=== PATIENT | male | born 1950 | race Caucasian/White ===

== ENCOUNTER 2021-12-24 12:00 | Observation (INO) | payer MEDICARE ==
[~2021-12-24] VITALS: Ht 175.3 cm; Wt 103.3 kg
[2021-12-24 10:18] LABS: BASOPHILS % (AUTO) 0.6 % (0.0-5.0); EOSINOPHILS % (AUTO) 0.9 % (0.0-8.0); HEMATOCRIT 49.1 % (42-54); LYMPHOCYTES % (AUTO) 38.5 % (21.0-51.0); MEAN CORPUSCULAR HEMOGLOBIN 28.5 pg (27.0-33.0); MEAN CORPUSCULAR HGB CONC 32.8 g/dL (32.0-36.0); MEAN CORPUSCULAR VOLUME 87.1 fL (79-99); NEUTROPHILS % (AUTO) 51.7 % (40.0-77.0); PLATELET COUNT (AUTO) 247 K/uL (130-400); RED BLOOD CELL COUNT(AUTO) 5.64 MIL/uL (4.50-6.20); RED CELL DISTRIBUTION WIDTH 12.9 % (11.0-15.5); WHITE BLOOD COUNT (AUTO) 12.1 K/uL (4.8-10.8)
[2021-12-24 10:26] LABS: INR 0.93 (0.85-1.15)
[2021-12-24 10:38] LABS: CARBON DIOXIDE 30 mmol/L (21-32); CHLORIDE 100 mmol/L (101-111); CREATININE 0.9 mg/dL (0.5-1.5); GLOMERULAR FILTR. RATE CALC 89 mL/min (>60); GLUCOSE,RANDOM 113 mg/dL (70-105); POTASSIUM 4.1 mmol/L (3.5-5.1); SODIUM SERUM 139 mmol/L (136-145); UREA NITROGEN, BLOOD 17 mg/dL (7-18)
[2021-12-24 10:56] LABS: CRP QUANTITATIVE < 2.00 mg/L (0.00-9.0)
[2021-12-24 10:58] LABS: APPEARANCE,URINE CLEAR (CLEAR); BILIRUBIN,URINE NEGATIVE (NEGATIVE); COLOR,URINE LIGHT-YELLOW (YELLOW); GLUCOSE, URINE (UA) NEGATIVE (NEGATIVE); KETONES,URINE NEGATIVE (NEGATIVE); LEUKOCYTE ESTERASE ,URINE NEGATIVE Leu/uL (NEGATIVE); NITRATE,URINE NEGATIVE (NEGATIVE); OCCULT BLOOD,URINE NEGATIVE (NEGATIVE); PH,URINE 5.5 (5.0-8.0); PROTEIN,URINE NEGATIVE (NEGATIVE); UROBILINOGEN,URINE 0.2 mg/dL (0.2-1.0)
[2021-12-24 11:42] VITALS: BP 161/82
[2021-12-24 12:10] LABS: INR 0.94 (0.85-1.15); PROTHROMBIN TIME 10.3 SEC (9.6-11.6)
[2021-12-24 12:12] LABS: PARTIAL THROMBOPLASTIN TIME 23.8 SEC (26.3-35.5)
[2021-12-27] VITALS (32 sets, daily range): BP systolic 127–162; BP diastolic 59–119
[2021-12-27] MEDS ORDERED: ROPIVACAINE 0.5% 5MG/ML 30ML IJ ONE ×3 (04:33→04:54)
[2021-12-27] MEDS ORDERED: KETOROLAC 15MG/ML VIAL (15MG/ML) ONE (04:33)
[2021-12-27] MEDS ORDERED: TRANEXAMIC ACID 1000MG/10ML ONE ×2 (04:37→06:22)
[2021-12-27] MEDS ORDERED: KETOROLAC 30MG VIAL (30MG/ML) ONE (04:37)
[2021-12-27] MEDS: CEFAZOLIN SODIUM 1 GM VIAL IVPB SCH ×2 (06:00→07:15)
[2021-12-27] MEDS ORDERED: LACTATED RINGERS 1000ML 1,000 ML IV ONE (06:19)
[2021-12-27] MEDS ORDERED: GLYCOPYRROLATE 1 MG/5 ML SYRINGE ONE (06:49)
[2021-12-27] MEDS ORDERED: PROPOFOL 10 MG/ML 20ML VIAL IV ONE ×2 (06:49→07:31)
[2021-12-27] MEDS ORDERED: LIDOCAINE PF 100MG/5ML (2%) SYRINGE 5ML ONE (06:49)
[2021-12-27] MEDS ORDERED: ONDANSETRON 4MG INJ ONE (06:49)
[2021-12-27] MEDS ORDERED: MIDAZOLAM HCL 1 MG/ML 2ML VIAL ONE (06:50)
[2021-12-27] MEDS ORDERED: NEOSTIGMINE 5MG/5ML SYR IV ONE (06:50)
[2021-12-27] MEDS ORDERED: FENTANYL CITRATE PF 50 MCG/1 ML 2ML VIAL ONE ×2 (06:50→08:24)
[2021-12-27] MEDS ORDERED: ROCURONIUM 10MG/1ML SYR 10 MG/ML ML ONE ×2 (06:50→08:22)
[2021-12-27] MEDS ORDERED: PHENYLEPHRINE HCL 10 MG/ML 1ML VIAL IV ONE (06:53)
[2021-12-27] MEDS ORDERED: MEPERIDINE-PF 25 MG/ML SYG ONE ×3 (09:00→10:16)
[2021-12-27] MEDS ORDERED: KCL 20 MEQ ERTAB PO PRN (09:30)
[2021-12-27] MEDS ORDERED: POTASSIUM CHLORIDE 10% ELIXIR 20 MEQ/15 ML UDCUP PO PRN (09:30)
[2021-12-27] MEDS ORDERED: POTASSIUM CHLORIDE 20MEQ/100ML 100 ML IV PRN (09:30)
[2021-12-27] MEDS ORDERED: LIDOCAINE HCL-MPF 1% 2ML VIAL IV PRN (09:30)
[2021-12-27] MEDS ORDERED: CALCIUM CARB 500MG PO PRN (09:30)
[2021-12-27] MEDS ORDERED: FERROUS FUMARATE 324 MG TABLET PO PRN (09:30)
[2021-12-27] MEDS ORDERED: ONDANSETRON 4MG INJ IVP PRN (09:30)
[2021-12-27] MEDS: GABAPENTIN 100 MG CAPSULE PO SCH ×2 (13:15→19:54)
[2021-12-27] MEDS: 0.9%NACL 1000ML 1,000 ML IV SCH ×2 (13:27→19:30)
[2021-12-27] MEDS: CEFAZOLIN SODIUM 1 GM VIAL IVP SCH ×2 (15:41→20:02)
[2021-12-27] MEDS: HYDROCODONE/ACETAMINOPHEN 5/325 MG TAB PO PRN ×2 (15:43→22:01)
[2021-12-28] MEDS: CYCLOBENZAPRINE HCL 10 MG TABLET PO PRN ×2 (03:13→13:25)
[2021-12-28 03:16] VITALS: BP 137/75
[2021-12-28] MEDS ORDERED: BENZOCAINE/MENTH/CETYLPYRD CL 1 EACH LOZENGE MM PRN (03:30)
[2021-12-28 04:34] LABS: HEMATOCRIT 42.2 % (42-54); MEAN CORPUSCULAR HEMOGLOBIN 28.9 pg (27.0-33.0); MEAN CORPUSCULAR HGB CONC 33.2 g/dL (32.0-36.0); MEAN CORPUSCULAR VOLUME 87.2 fL (79-99); RED BLOOD CELL COUNT(AUTO) 4.84 MIL/uL (4.50-6.20); RED CELL DISTRIBUTION WIDTH 12.7 % (11.0-15.5); WHITE BLOOD COUNT (AUTO) 16.5 K/uL (4.8-10.8)
[2021-12-28 04:41] LABS: CREATININE 1.2 mg/dL (0.5-1.5); POTASSIUM 4.7 mmol/L (3.5-5.1)
[2021-12-28] MEDS: 0.9%NACL 1000ML 1,000 ML IV SCH (05:11)
[2021-12-28] MEDS: HYDROCODONE/ACETAMINOPHEN 5/325 MG TAB PO PRN ×2 (07:41→16:56)
[2021-12-28 08:20] VITALS: BP 134/84
[2021-12-28] MEDS: GABAPENTIN 100 MG CAPSULE PO SCH ×2 (08:48→13:23)
[2021-12-28] MEDS ORDERED: ASPIRIN 325MG TAB PO SCH (09:00)
[2021-12-28] MEDS ORDERED: POLYETHYLENE GLYCOL 3350 17 GM POWD.PACK PO SCH (09:00)
[2021-12-28 11:14] VITALS: BP 147/68
[2021-12-28 16:36] VITALS: BP 149/66
[2021-12-28] MEDS ORDERED: GABA100C PO (16:45)
[2021-12-28] MEDS ORDERED: CYCL-309 PO (16:45)
[2021-12-28] MEDS ORDERED: DOCU-116 PO (16:45)
[2021-12-28] MEDS ORDERED: ASPI-1026 PO (16:45)
[2021-12-28] MEDS ORDERED: HYDR-4060 PO (16:45)
[2021-12-30] MEDS ORDERED: BISACODYL 10 MG SUPP.RECT RC PRN (09:30)
== END 2021-12-28 18:10 | disposition home health service (06) ==
LOC: DAHIP 12-27 05:56 → 4DH 12-27 11:28 → EDSTATUS 12-27 12:00
PROVIDERS: ADMIT Student in an Organized Health Care Education/Training Program; ATTEND Student in an Organized Health Care Education/Training Program
DX: M17.11 Unilateral primary osteoarthritis, right knee (principal); Z20.822 Contact with and (suspected) exposure to COVID-19; R33.9 Retention of urine, unspecified; E78.00 Pure hypercholesterolemia, unspecified; Z79.899 Other long term (current) drug therapy; Z98.890 Other specified postprocedural states
CPT/HCPCS: 82040; 80048 ×2; 85025; 85610; 85730; 87088; 84134; 86140; 87426; 81003; 36415 ×2; 87641; 97039 ×4; 27447; 96374; 96376; 76942; 64447; 73560; 97161; 85027; 97116 ×2; 97530; G0378 ×32; G0379; A4663; A4215 ×2; A4600; J7120; J3010 ×2; J0690 ×3; J3490 ×3; J2710; J2001; J2704 ×2; J2405; J1885; J2175 ×3; J2795 ×3; J2370; C1713; G0168; C1776 ×2; A4930; A4649 ×2; A6255; A5120; A4223; A4222; A4221; J2250

== ENCOUNTER 2022-09-26 08:16 | Observation (INO) | payer MEDICARE ==
[2022-09-23 13:19] LABS: BASOPHILS # (AUTO) 0.06 K/uL (0.00-0.20); BASOPHILS % (AUTO) 0.6 % (0.0-5.0); HEMATOCRIT 48.7 % (42-54); IMMATURE GRANULOCYTE ABSOLUTE 0.03 K/uL (0-1); LYMPHOCYTES # (AUTO) 4.3 K/uL (1.0-4.8); MEAN CORPUSCULAR HEMOGLOBIN 28.4 pg (27.0-33.0); MEAN CORPUSCULAR HGB CONC 32.2 g/dL (32.0-36.0); MEAN CORPUSCULAR VOLUME 88.2 fL (79-99); MONOCYTES % (AUTO) 9.5 % (3.0-13.0); NEUTROPHILS % (AUTO) 47.6 % (40.0-77.0); PLATELET COUNT (AUTO) 240 K/uL (130-400); RED BLOOD CELL COUNT(AUTO) 5.52 MIL/uL (4.50-6.20); RED CELL DISTRIBUTION WIDTH 13.2 % (11.0-15.5); WHITE BLOOD COUNT (AUTO) 10.5 K/uL (4.8-10.8)
[2022-09-23 13:20] LABS: APPEARANCE,URINE CLEAR (CLEAR); BILIRUBIN,URINE NEGATIVE (NEGATIVE); COLOR,URINE LIGHT-YELLOW (YELLOW); GLUCOSE, URINE (UA) NEGATIVE (NEGATIVE); KETONES,URINE NEGATIVE (NEGATIVE); LEUKOCYTE ESTERASE ,URINE NEGATIVE Leu/uL (NEGATIVE); NITRATE,URINE NEGATIVE (NEGATIVE); OCCULT BLOOD,URINE NEGATIVE (NEGATIVE); PH,URINE 6.5 (5.0-8.0); PROTEIN,URINE NEGATIVE (NEGATIVE); UROBILINOGEN,URINE 0.2 mg/dL (0.2-1.0)
[2022-09-23 13:21] LABS: ADD UA MICROSCOPIC NO
[2022-09-23 13:33] LABS: INR 0.93 (0.85-1.15); PROTHROMBIN TIME 10.2 SEC (9.6-11.6)
[2022-09-23 13:34] LABS: CARBON DIOXIDE 29 mmol/L (21-32); CHLORIDE 103 mmol/L (101-111); CREATININE 0.9 mg/dL (0.5-1.5); GLOMERULAR FILTR. RATE CALC 91 mL/min (>90); GLUCOSE,RANDOM 109 mg/dL (70-105); PARTIAL THROMBOPLASTIN TIME 24.5 SEC (26.3-35.5); POTASSIUM 4.6 mmol/L (3.5-5.1); SODIUM SERUM 141 mmol/L (136-145); UREA NITROGEN, BLOOD 11 mg/dL (7-18)
[2022-09-23 13:35] LABS: CRP QUANTITATIVE < 0.29 mg/L (0.00-9.0)
[2022-09-23 14:05] VITALS: BP 173/81; PULSE 73; RESP 20
[~2022-09-26] VITALS: Ht 175.3 cm; Wt 106.0 kg
[2022-09-26] VITALS (25 sets, daily range): BP systolic 134–169; BP diastolic 74–96; PULSE 66–106; RESP 15–20; O2SAT 95–97
[~2022-09-26 08:16] MED LIST: LISI10TA24 PO
[2022-09-26] MEDS ORDERED: LACTATED RINGERS 1000ML 1,000 ML IV ONE (08:52)
[2022-09-26] MEDS ORDERED: CEFAZOLIN SODIUM 2 GM VIAL ONE (08:52)
[2022-09-26] MEDS ORDERED: SUCCINYLCHOLINE CHLORIDE 20 MG/ML 10 ML VIAL ONE (08:56)
[2022-09-26] MEDS ORDERED: LIDOCAINE PF 100MG/5ML (2%) SYRINGE 5ML ONE (08:56)
[2022-09-26] MEDS ORDERED: NEOSTIGMINE 5MG/5ML SYR IV ONE (08:57)
[2022-09-26] MEDS ORDERED: DEXAMETHASONE SOD PHOSPHATE 10MG/ML 1ML VIAL ONE (08:57)
[2022-09-26] MEDS ORDERED: PROPOFOL 10 MG/ML 20ML VIAL IV ONE (08:57)
[2022-09-26] MEDS ORDERED: ONDANSETRON 4MG INJ ONE (08:57)
[2022-09-26] MEDS ORDERED: GLYCOPYRROLATE 1 MG/5 ML SYRINGE ONE (08:57)
[2022-09-26] MEDS ORDERED: ROCURONIUM 10MG/1ML SYR 10 MG/ML ML ONE ×2 (08:57→12:05)
[2022-09-26] MEDS ORDERED: MIDAZOLAM HCL 1 MG/ML 2ML VIAL ONE (08:57)
[2022-09-26] MEDS ORDERED: FENTANYL CITRATE PF 50 MCG/1 ML 2ML VIAL ONE (08:58)
[2022-09-26] MEDS ORDERED: LIDOCAINE HCL-MPF 2% 10ML AMP IJ ONE (09:05)
[2022-09-26] MEDS ORDERED: ROPIVACAINE 0.5% 5MG/ML 30ML IJ ONE ×2 (09:06→09:11)
[2022-09-26] MEDS ORDERED: TRANEXAMIC ACID 1000MG/10ML ONE (09:09)
[2022-09-26] MEDS ORDERED: KETOROLAC 30MG VIAL (30MG/ML) ONE (09:11)
[2022-09-26] MEDS ORDERED: MORPHINE PF 100MG/10ML AMP IV ONE (12:21)
[2022-09-26] MEDS ORDERED: POTASSIUM CHLORIDE 20MEQ/100ML 100 ML IV PRN (14:00)
[2022-09-26] MEDS ORDERED: HYDROCODONE/ACETAMINOPHEN 5/325 MG TAB PO PRN ×2 (14:00→14:30)
[2022-09-26] MEDS ORDERED: POTASSIUM CHLORIDE 10% ELIXIR 20 MEQ/15 ML UDCUP PO PRN (14:00)
[2022-09-26] MEDS ORDERED: ONDANSETRON 4MG INJ IVP PRN (14:00)
[2022-09-26] MEDS ORDERED: CALCIUM CARB 500MG PO PRN (14:00)
[2022-09-26] MEDS ORDERED: CYCLOBENZAPRINE HCL 10 MG TABLET PO PRN (14:00)
[2022-09-26] MEDS ORDERED: KCL 20 MEQ ERTAB PO PRN (14:00)
[2022-09-26] MEDS ORDERED: FERROUS FUMARATE 324 MG TABLET PO PRN (14:00)
[2022-09-26] MEDS ORDERED: TRAMADOL HCL 50 MG TABLET PO PRN (14:00)
[2022-09-26] MEDS: KETOROLAC 15MG/ML VIAL (15MG/ML) IV SCH ×2 (14:18→21:04)
[2022-09-26] MEDS: GABAPENTIN 100 MG CAPSULE PO SCH ×2 (15:23→21:03)
[2022-09-26] MEDS: 0.9%NACL 1000ML 1,000 ML IV SCH (15:23)
[2022-09-26] MEDS: HYDROCODONE/ACETAMINOPHEN 5/325 MG TAB PO PRN (15:59)
[2022-09-26] MEDS: CEFAZOLIN SODIUM 2 GM VIAL IVPB SCH (18:28)
[2022-09-26] MEDS: DOCUSATE SODIUM 100 MG CAP PO SCH (21:03)
[2022-09-27] VITALS: BP 151/86; PULSE 109; RESP 20
[2022-09-27] MEDS: HYDROCODONE/ACETAMINOPHEN 5/325 MG TAB PO PRN ×2 (00:08→11:31)
[2022-09-27] MEDS: CEFAZOLIN SODIUM 2 GM VIAL IVPB SCH (03:05)
[2022-09-27 04:00] VITALS: BP 126/73; PULSE 109; RESP 18
[2022-09-27 05:43] LABS: HEMATOCRIT 41.3 % (42-54); MEAN CORPUSCULAR HEMOGLOBIN 29.2 pg (27.0-33.0); MEAN CORPUSCULAR HGB CONC 33.2 g/dL (32.0-36.0); MEAN CORPUSCULAR VOLUME 88.1 fL (79-99); RED BLOOD CELL COUNT(AUTO) 4.69 MIL/uL (4.50-6.20); RED CELL DISTRIBUTION WIDTH 13.1 % (11.0-15.5); WHITE BLOOD COUNT (AUTO) 15.1 K/uL (4.8-10.8)
[2022-09-27] MEDS: KETOROLAC 15MG/ML VIAL (15MG/ML) IV SCH (05:44)
[2022-09-27 06:04] LABS: POTASSIUM 3.8 mmol/L (3.5-5.1)
[2022-09-27 07:30] VITALS: O2SAT 95
[2022-09-27 08:00] VITALS: BP 112/73; PULSE 95; RESP 16
[2022-09-27] MEDS ORDERED: LISINOPRIL 10 MG TABLET PO SCH (09:00)
[2022-09-27] MEDS ORDERED: ASPIRIN 325MG TAB PO SCH (09:00)
[2022-09-27] MEDS ORDERED: POLYETHYLENE GLYCOL 3350 17 GM POWD.PACK PO SCH (09:00)
[2022-09-27] MEDS: 0.9%NACL 1000ML 1,000 ML IV SCH ×2 (10:00)
[2022-09-27] MEDS: GABAPENTIN 100 MG CAPSULE PO SCH ×2 (10:14→13:53)
[2022-09-27] MEDS: DOCUSATE SODIUM 100 MG CAP PO SCH (10:14)
[2022-09-27 12:00] VITALS: BP 135/71; PULSE 106; RESP 16
[2022-09-27] MEDS ORDERED: KETOROLAC 15MG/ML VIAL (15MG/ML) IV PRN (14:00)
[2022-09-27 16:00] VITALS: BP 128/72; PULSE 98; RESP 16
[2022-09-29] MEDS ORDERED: BISACODYL 10 MG SUPP.RECT RC PRN (14:00)
== END 2022-09-27 18:15 | disposition home or self-care (01) ==
LOC: DAH 08:16 → DAHIP 08:17 → 4CH 14:45
PROVIDERS: ADMIT Student in an Organized Health Care Education/Training Program; ATTEND Student in an Organized Health Care Education/Training Program
DX: M17.12 Unilateral primary osteoarthritis, left knee (principal); Z20.822 Contact with and (suspected) exposure to COVID-19; D64.9 Anemia, unspecified; G89.18 Other acute postprocedural pain; E78.00 Pure hypercholesterolemia, unspecified; Z79.899 Other long term (current) drug therapy; Z79.82 Long term (current) use of aspirin; Z98.890 Other specified postprocedural states; Z90.49 Acquired absence of other specified parts of digestive tract
CPT/HCPCS: 82040; 80048 ×2; 85025; 85610; 85730; 87088; 84134; 86140; 87426; 81003; 36415 ×2; 87641; 27447; 96365; 96375; 64447; 73560; 96376; 96366; 85027; 97161; 97039; 97116 ×2; 97530; G0378 ×26; G0379; A4600; A4663; A4215 ×2; J7120; J3010; J3490 ×3; J1100; J2710; J0330; J2001; J2250; J2704; J2274; J2405; J1885 ×4; J2795 ×2; J0690 ×3; G0168; A4649 ×3; C1713; C1776; A6255; A4223; A4222; A4221